=== PATIENT | female | born 1960 | race Caucasian/White ===

== ENCOUNTER 2017-09-02 09:31 | Emergency (ER) | payer OTHER ==
[~2017-09-02 09:31] MED LIST: ACET325 PO; AZIT250T43 PO; CLON-481 PO; COZA100T PO; CYCL-36 PO; IBUP800T23 PO; SULF-154 PO; Z.0.WHEELSTD
[2017-09-02 09:44] VITALS: BP 126/64; PULSE 84; RESP 20; TEMP 98.2; O2SAT 99
[2017-09-02 09:53] VITALS: BP 126/64; PULSE 82; RESP 18; TEMP 98.2; O2SAT 98
--- NOTE | 2017-09-02 10:53 | PD ---
HPI Chief Complaint: Eye Problems/Injury Time Seen by Provider: 10:23 Travel History International Travel<30 days: No Contact w/Intl Traveler<30days: No Traveled to known affect area: No History of Present Illness HPI This patient has had significant decrease in her left eye vision that started 3 days ago. He does have some eye pain. She rates it 7 out of 10. The vision decrease is severe. Right eye vision is normal. She wears bifocals usually. She saw special effects makeup artist Dr. Donahue yesterday. She reports that she was diagnosed with glaucoma. He wrote a prescription or to but the patient did not get it filled. She does not know what the prescriptions were for. She says that the special effects makeup artist told her to get a good night sleep and then call 9 1 1 in the morning and go to the hospital to see an netbackup administrator. Patient has HIV disease. She does not have a personal netbackup administrator. She is on antivirals. She denies fever. No alleviating factors. No exacerbating factors. 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 NOT ON ANTI-VIRAL'S) Blood Disorders: Yes (HIV, Hep C) Bipolar Disorder: Yes Anxiety: Yes Depression: Yes Heart Rhythm Problems: No Cancer: No Cardiovascular Problems: Yes High Cholesterol: No Chemotherapy: No Chest Pain: No Congestive Heart Failure: No COPD: No Cerebrovascular Accident: Yes ("I THINK SO") Diabetes: No Diminished Hearing: No Endocrine: No Gastrointestinal Disorders: Yes GERD: No Glaucoma: No Genitourinary: No Headaches: Yes Hepatitis: Yes (C) Hiatal Hernia: No Hypertension: Yes Immune Disorder: Yes (+HIV) Kidney Stones: No Musculoskeletal: Yes Neurologic: No Psychiatric: Yes (BIPOLAR) Reproductive: No Respiratory: Yes (ASTHMA) Myocardial Infarction: No Radiation Therapy: No Renal Failure: No Seizures: No Sickle Cell Disease: No Sleep Apnea: Yes Thyroid Disease: No Ulcer: No ?: Not Menopausal: Yes : 2 Para: 2 Tubal Ligation: Yes Past Surgical History Abdominal Surgery: No AICD: No Appendectomy: Yes Cardiac Surgery: No Ear Surgery: No Endocrine Surgery: No Eye Surgery: No Genitourinary Surgery: No Gynecologic Surgery: No Hysterectomy: No Insulin Pump: No Joint Replacement: No Neurologic Surgery: No Oral Surgery: No Pacemaker: No Thoracic Surgery: No Other Surgery: Yes Social History Alcohol Use: Yes Tobacco Use: Yes Substance Use: No Allergies-Medications (Allergen,Severity, Reaction): Coded Allergies: *MDRO Multi-Drug Resistant Organism (Verified Adverse Reaction, Unknown, ) MRSA PCR (nares) positive - 09/19/15 Reported Meds & Prescriptions Reported Meds & Active Scripts Active Ibuprofen 800 Mg Tab 800 Mg PO Q6H PRN Wheelchair Standard (Wheelstd) Device 1 Unit Reported Tylenol (Acetaminophen) 325 Mg Tab 325 Mg PO Q6H Azithromycin 250 Mg Tab 600 Mg PO WEEKLY Septra Ds (Trimethoprim/Sulfamethoxazole) Tab 1 Tab PO DAILY Flexeril (Cyclobenzaprine HCl) 10 Mg Tab 10 Mg PO BID Catapres 0.3 mg (Clonidine HCl) 0.3 Mg Tab 1 Tab PO TID Cozaar (Losartan Potassium) 100 Mg Tab 100 Mg PO DAILY Review of Systems General / Constitutional: No: Fever Eyes: Positive: Blurred Vision, Redness, Pain, No: Visual changes HENT: No: Headaches Cardiovascular: No: Chest Pain or Discomfort Respiratory: No: Shortness of Breath Gastrointestinal: No: Abdominal Pain Genitourinary: No: Dysuria Musculoskeletal: No: Pain Skin: No Rash Neurologic: No: Weakness Psychiatric: No: Depression Endocrine: No: Polydipsia Hematologic/Lymphatic: No: Easy Bruising Physical Exam Narrative GENERAL: Thin well-developed patient with left eye pain SKIN: Focused skin assessment reveals no rash and nodules. Skin is Warm and dry. HEAD: Atraumatic. Normocephalic. EYES: Pupil on the right is clear and round and reactive. Pupil on the left is clouded over and nonreactive. There is some diffuse scleral injection on the left. No scleral icterus. No drainage ENT: No nasal bleeding or discharge. Mucous membranes pink and moist. NECK: Trachea midline. No JVD. CARDIOVASCULAR: Regular rate and rhythm. No murmur appreciated. RESPIRATORY: No accessory muscle use. Clear to auscultation. Breath sounds equal bilaterally. GASTROINTESTINAL: Abdomen soft, non-tender, nondistended. Hepatic and splenic margins not palpable. MUSCULOSKELETAL: No obvious deformities. No clubbing. No cyanosis. No edema. NEUROLOGICAL: Awake and alert. No obvious cranial nerve deficits. Motor grossly within normal limits. Normal speech. PSYCHIATRIC: Appropriate mood and affect; insight and judgment poor Data Data Last Documented VS Vital Signs Date Time Temp Pulse Resp B/P (MAP) Pulse Ox O2 Delivery O2 Flow Rate FiO2 09/02/17 09:53 98.2 82 18 126/64 (84) 98 Room Air MDM Medical Decision Making Medical Screen Exam Complete: Yes Emergency Medical Condition: Yes Medical Record Reviewed: Yes Differential Diagnosis Glaucoma, iritis, foreign body Narrative Course I have reviewed the patient's electronic medical record. Reviewed her H&P from 2016 detailing her medical history Patient has acute vision loss in the left eye. She can only see how many fingers I am holding up in front of her left eye at a distance of 6 inches I spoke with the special effects makeup artist who saw her yesterday. This is Dr. Gaxiola. He reports her eye pressure was 25 and there was some abnormal folds in her corneal epithelium. He says it looks like someone took sandpaper rubbed it across her cornea on fluorescein Patient's vitals are normal She has HIV disease on antivirals I placed a call to ophthalmology to discuss. Dr. Eduardo will see her in the office as soon as the patient can get there. We will work on getting her there. The netbackup administrator is literally one block away from the hospital. 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 Eduardo, ophthalmology who will evaluate you Med/Other Pt SpecificInfo: Other Disposition: 01 DISCHARGE HOME Condition: Serious Silvano Alvarado MD Sep 02, 2017 10:53
[2017-09-02] MEDS ORDERED: PROPARACAINE HCL 0.5% OPHT SOLN 15 ML BTL LEFT EYE ONE (11:00)
--- NOTE | 2017-09-02 13:02 | PD.CONS ---
History of Present Illness Service Ophthalmology Consult Requested By Reason for Consult left eye decreased vision Primary Care Physician Morgan Cuevas D.O. Diagnoses: History of Present Illness 57 yo F with h/o HIV c/o 3 day history of decreased vision, redness and pain in her left eye. She states it started suddenly. No significant ocular history. She went to see Dr.Kevin Gaxiola, Optometry, yesterday and they wanted her to start Travatan Z and antibiotic eyedrops. I spoke with Dr. Gaxiola today - he states the intraocular pressure was 25 and there was corneal edema but he was unsure as to what the diagnosis was. The patient said she did not get any of the eyedrops she was prescribed, and Dr. Gaxiola called her and told her to go the ER to see an records technician. Past Family Social History Allergies: Coded Allergies: *MDRO Multi-Drug Resistant Organism (Verified Adverse Reaction, Unknown, ) MRSA PCR (nares) positive - 09/19/15 Physical Exam Vital Signs Vital Signs Date Time Temp Pulse Resp B/P (MAP) Pulse Ox O2 Delivery O2 Flow Rate FiO2 09/02/17 09:53 98.2 82 18 126/64 (84) 98 Room Air 09/02/17 09:44 98.2 84 20 126/64 (84) 99 Physical Exam Va cc at near OD 20/40, OS CF 1 ft EOM full OU, no diplopia CVF full OD, unable OS Pupils 2-1 OS, no view OS IOP normal to palpation OU Anterior exam OD - normal eyelid, C/S W&Q, K clear, AC deep, pupil round, lens clear OS - normal eyelid, conj injection, corneal edema, AC deep, posterior synechiae Assessment and Plan Problem List: (1) Acute anterior uveitis of left eye ICD Codes: H20.9 - Unspecified iridocyclitis Plan: Start Cyclogyl 1% BID OS, prednisolone acetate 1% q1h OS while awake. Follow up in office Friday at 10 am. Kathy N Matt [facility]. [phone] Irene Eduardo MD Sep 02, 2017 13:02
[2017-09-02 13:43] VITALS: BP 121/70
== END 2017-09-02 13:44 | disposition home or self-care (01) ==
LOC: NEPC 09:31
DX: H40.42 Glaucoma secondary to eye inflammation, left eye (principal); H20.9 Unspecified iridocyclitis; H54.7 Unspecified visual loss; B20 Human immunodeficiency virus [HIV] disease; H40.9 Unspecified glaucoma; B19.20 Unspecified viral hepatitis C without hepatic coma; I10 Essential (primary) hypertension; J45.909 Unspecified asthma, uncomplicated; Z72.0 Tobacco use
CPT/HCPCS: 99282